=== PATIENT | male | born 1945 | race Caucasian/White ===

== ENCOUNTER 2021-03-07 10:12 | Day surgery (SDC) | payer MEDICARE, SELFPAY ==
[2021-02-25 14:54] VITALS: BMI 34.7
--- NOTE | 2021-03-01 13:22 | RAD_ITS ---
STUDY: X-RAY CHEST REASON FOR EXAM: Male, 76 years old. Pre-op. TECHNIQUE: PA and lateral views of the chest. COMPARISON: None. FINDINGS: The lungs are clear and expanded. There is no demonstrated pleural abnormality. Normal size heart. There is a left-sided dual lead cardiac pacemaker. Normal mediastinum and ilene. Normal visualized pulmonary arteries. Normal visualized aortic arch and descending thoracic aorta. Minimal degenerative changes of the thoracic spine. There is degenerative osteoarthritis of the bilateral shoulders. There is no demonstrated abnormality of the visualized soft tissue structures of the upper abdomen. RAD/Chest PA and Lateral IMPRESSION: Cardiac pacemaker without acute cardiopulmonary disease. Electronically Signed: Willis Guardado DO at 23:56 EDT Tel [phone], Service support ,
[2021-03-01 13:36] LABS: Bacteria 0 SEEN /hpf (None Seen); Mucous, Urine 0 SEEN /hpf (<or=2+); Red Blood Cells-Urine 0 SEEN /hpf (0-5); Squamous Epithelial Cells - UA 0 SEEN /hpf (0-5)
[2021-03-01 13:58] LABS: Hematocrit 40.8 % (40-54); Hemoglobin 13.6 g/dL (13.0-16.5); Mean Corp Hgb Conc 33.3 g/dL (32-36); Mean Corpuscular Hgb 31.1 pg (27.0-32.0); Mean Corpuscular Volume 93.2 fL (80-94); Mean Platelet Vol. 11.1 fl (6.2-12.0); Platelet Count 185 K/mm3 (150-450); RBC Distribution Width CV 12.4 % (11.6-14.6); RBC Distribution Width SD 42.5 fl (35.1-43.9); Red Blood Count 4.38 M/mm3 (4.6-6.2); White Blood Count 5.1 K/mm3 (4.4-11.0)
[2021-03-01 13:59] LABS: Color, Urine Yellow (Yellow); Glucose, Dipstick Normal (Normal); Ketone-Dipstick Negative (Negative); Leukocyte Esterase-Dipstick 100 /ul (Negative); Nitrite-Dipstick Negative (Negative); Occult Blood-Urine Negative /ul (Negative); Protein-Dipstick Negative (Negative); Specific Gravity, Urine 1.015 (1.002-1.030); Urine Bilirubin Dipstick Negative (Negative); Urine Clarity Sl. Cloudy (Clear); Urine Urobilinogen 1 mg/dl (Normal)
[2021-03-01 14:06] LABS: International Normalized Ratio 2.1; Prothrombin Time (Protime)PT. 22.9 SECONDS (11.7-14.9); White Blood Cells 10-25 SEEN /hpf (0-5)
[2021-03-01 14:23] LABS: Anion Gap 5 (5-15); BUN 26 mg/dL (7-18); Calcium,Total 9.1 mg/dL (8.5-10.1); Chloride 108 mmol/L (98-107); Creatinine, Serum 1.24 mg/dL (0.70-1.30); EST Glomerular Filtration Rate 61 mL/min (>60); Est Glom Filt Rate - Afr Amer 73 mL/min (>60); Glucose 144 mg/dL (74-106); Potassium 4.2 mmol/L (3.5-5.1); Sodium Level 142 mmol/L (136-145)
[2021-03-04 09:06] VITALS: BMI 34.7
[2021-03-07 10:31] LABS: INR Fingerstick 1.2
--- NOTE | 2021-03-07 13:20 | CL.IE_ITS ---
Patient: MECCA VALDEZ Study Date: 03/07/2021 Performing: Prosper Rashid MD : 1945 Age: 76 Gender: male PROCEDURES PERFORMED [id number] REMOVAL+REPLACEMENT PACER-DUAL LEAD INDICATIONS End-of-life replacement indicator Sinoatrial node dysfunction/Sick sinus syndrome PROCEDURE DETAILS The patient was brought to the Catheterization Lab in the postabsorptive nonsedated state. Infor med consent was obtained prior to the procedure. Local anesthetic was given subcutaneously to the le ft upper chest area with Lidocaine 2%. Incision was made to the left upper chest. PPM generator was r emoved. PPM atrial lead testing performed. PPM ventricular lead testing performed. PPM ventricular le ad testing performed. Device pocket was irrigated with antibiotic. PPM generator was attached to the lead(s) and inserted into the pocket. Subcutaneous closure was completed with 3-0 Vicryl. Skin closur e was completed with 4-0 Vicryl. Steri-strips applied to left subclavicular incision. Instrument, spo nge, and needle counts were noted to be normal. The patient tolerated the procedure well. 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 Ancef 2 Gm IV @ 03/07/2021 12:31:36 Signed By Prosper Rashid MD On 03/07/2021 13:19:33 Prosper Rashid MD
== END 2021-03-07 14:40 | disposition home or self-care (01) ==
PROVIDERS: Nurse Practitioner Family; PCP Family Medicine; Referring Provider Internal Medicine Cardiovascular Disease; Visit Provider Internal Medicine Cardiovascular Disease
DX: Z45.018 Encounter for adjustment and management of other part of cardiac pacemaker (principal); I49.5 Sick sinus syndrome; I10 Essential (primary) hypertension; I48.0 Paroxysmal atrial fibrillation; E78.00 Pure hypercholesterolemia, unspecified; Z79.01 Long term (current) use of anticoagulants
CPT/HCPCS: 33228; 36415; 36416; 80048; 81001; 85027; 85610; 99152; 99153; J7040; J7050

== ENCOUNTER → 2022-01-17 | Outpatient (CLI) | payer MEDICARE, SELFPAY ==
--- NOTE | 2022-01-17 09:55 | ART_ITS ---
Reason For Study: PVD Procedure A bilateral lower extremity continuous wave Doppler with analog waveform analysis,segmental pressures,and ankle brachial indexes with exercise. Left Segmental Pressures Left brachial= 143mmHg. Left digit = 81 mmHg. EIGHT SECTION BLOWER and DPA are noncompressible. The left posterior tibial artery waveforms are biphasic. The left dorsalis pedis waveforms are triphasic. Right Segmental Pressures Right brachial= 147mmHg. Right posterior tibial artery = 181mmHg. Right dorsalis pedis artery = 216mmHg. Right digit = 91 mmHg. The right dorsalis pedis waveforms are biphasic. The right posterior tibial artery waveforms are triphasic. Indices The right ankle brachial index by the posterior tibial artery is 1.23. The right ankle brachial index by the dorsalis pedis is 1.47. The right digital-brachial index is .62. Post exercise patient is noncompressible at the ankle. EIGHT SECTION BLOWER and DPA are noncompressible. Post exercise patient is noncompressible at the ankle. The left digital-brachial index is .55. VL/Lower Ext Art Exam w/ Exercise Interpretation Summary Biphasic and triphasic Doppler waveforms are noted at ankle level bilaterally. Pulse-volume recordings appear satisfactory at all levels bilaterally. The resting right ank le-brachial index is supra-normal. The resting left ankle-brachial index could not be determined due to the non- compressibility of the vasculature at ankle level on the left. Digital-brachial indices are mildly diminished bilaterally. The patient was ambulated for 1 minute at a moderate pa ce, which was terminated due to right knee pain . Ankle pressures augmented on the right, whi ch is a normal physiological response. Full assessment could not be performed on the left due to the non- compressibility of the vasculature. There is evidence of arterial calcification at ankle level bilaterally. There i s no definitive evidence of arterial occlusive disease at ankle level bilaterally. There is alexa dence of mild arterial occlusive disease at digital level bilaterally. Ordering Physician: Young Aguirre Referring Physician: Young Aguirre Performed By: Martinez Salas, RVT
== END | disposition home or self-care (01) ==
LOC: CVS 09:53
PROVIDERS: PCP Family Medicine; Referring Provider Podiatrist; Visit Provider Podiatrist
DX: I73.9 Peripheral vascular disease, unspecified (principal)
CPT/HCPCS: 93924

== ENCOUNTER → 2023-01-26 | Outpatient (CLI) | payer MEDICARE, SELFPAY ==
--- NOTE | 2023-01-26 12:42 | ECHOCS_ITS ---
Reason For Study: PAF Procedure This was a 2D Doppler, Color Flow transthoracic echocardiogram. Contrast injection was performed. Exam performed in department. Left Ventricle Normal LV size. Left ventricular systolic function is normal. Stage 1 diastolic dysfunction. The estimated ejection fraction is 55 %. No regional wall motion abnormalities noted. Right Ventricle Normal RV size. ICD or pacer leads identified within the right ventricle. Normal systolic function. Atria Normal left atrium. Normal right atrium. Mitral Valve Normal mitral valve. Tricuspid Valve Normal tricuspid valve. Mild tricuspid valve insufficiency. Aortic Valve Trisinus/trileaflet aortic valve. Pulmonic Valve Normal pulmonic valve. Great Vessels Normal aortic root. The pulmonary artery is normal size. Normal inferior vena cava. Pericardium/Pleural No pericardial effusion. Medication Diluted definity 3ml given slow IV push to enhance endocardial definition. MMode/2D Measurements & Calculations LVIDd: 5.4 cm IVSd: 0.97 cm Ao root diam: 3.4 cm LVIDs: 3.6 cm LVPWd: 1.1 cm RVDd: 2.9 cm FS: 33.3 % LAV(MOD-bp): 34.0 ml LVAd ap4: 28.5 cm2 SV(MOD-sp4): 51.5 ml LAV(MOD-bp) Indexed: 15.6 ml/m2 LVLd ap4: 7.2 cm LAV(MOD-sp2): 23.4 ml EDV(MOD-sp4): 92.2 ml LAV(MOD-sp4): 41.1 ml EDV(sp4-el): 96.6 ml LVAs ap4: 17.3 cm2 LVLs ap4: 6.1 cm ESV(MOD-sp4): 40.7 ml ESV(sp4-el): 41.5 ml EF(MOD-sp4): 55.8 % EF(sp4-el): 57.0 % SV(sp4-el): 55.1 ml LA A4 area: 16.7 cm2 LA dimension(2D): 3.5 cm RA A4 area: 8.4 cm2 Time Measurements MV dec time: 0.37 sec Doppler Measurements & Calculations MV E max jamil: 46.5 cm/sec Lat Peak E' Jamil: 9.7 cm/sec Med Peak E' Jamil: 4.9 cm/sec MV A max jamil: 65.4 cm/sec E/E' lat: 4.8 E/E' med: 9.4 MV E/A: 0.71 MV dec slope: 125.9 cm/sec2 Ao V2 max: 158.0 cm/sec LV V1 max: 87.0 cm/sec Ao max P.0 mmHg LV V1 max P.0 mmHg Ao V2 mean: 114.9 cm/sec Ao mean P.7 mmHg Ao V2 VTI: 32.8 cm PA V2 max: 85.7 cm/sec TR max jamil: 189.4 cm/sec TR max P.3 mmHg ECHO/Echo Complete W/ Contrast Interpretation Summary Normal LV size. Left ventricular systolic function is normal. ICD or pacer leads identified within the right ventricle. Stage 1 diastolic dysfunction. Contrast injection was performed. Ordering Physician: Yaneth Salvador Referring Physician: Yaneth Salvador Performed By: Tammy Raza RDCS, RVT
== END | disposition home or self-care (01) ==
LOC: CVS 12:39
PROVIDERS: PCP Family Medicine; Referring Provider Nurse Practitioner Gerontology; Visit Provider Nurse Practitioner Gerontology
DX: I48.0 Paroxysmal atrial fibrillation (principal); Z95.0 Presence of cardiac pacemaker
CPT/HCPCS: 93306; Q9957; A4216; C8929